=== PATIENT | male | born 1960 | race Caucasian/White ===

== ENCOUNTER → 2018-01-10 | Outpatient (CLI) | payer OTHER | END | disposition home or self-care (01) | LOC: KCIC 15:54 | DX: I25.10 Atherosclerotic heart disease of native coronary artery without angina pectoris (principal); I51.7 Cardiomegaly; J42 Unspecified chronic bronchitis; Z87.891 Personal history of nicotine dependence | CPT/HCPCS: 71046; 71100 ==